=== PATIENT | female | born 1990 | race Two or more races ===

== ENCOUNTER 2021-07-20 10:23 | Emergency (ER) | payer OTHER ==
[~2021-07-20] VITALS: Ht 157.5 cm; Wt 59.0 kg
[2021-07-20 15:30] VITALS: BP 119/70
== END 2021-07-20 16:39 | disposition home or self-care (01) ==
LOC: ER 10:23
DX: S61.301A Unspecified open wound of left index finger with damage to nail, initial encounter (principal); W26.0XXA Contact with knife, initial encounter; Y93.89 Activity, other specified; Y92.89 Other specified places as the place of occurrence of the external cause; Y99.8 Other external cause status